=== PATIENT | female | born 1985 | race Caucasian/White ===

== ENCOUNTER 2016-12-27 15:31 | Outpatient (CLI) | payer MEDICAID ==
[~2016-12-27] VITALS: Ht 152.4 cm; Wt 64.5 kg
[2016-12-27 15:51] VITALS: BP 133/77; PULSE 92; RESP 18; Ht 152.4 cm; Wt 64.5 kg
[2016-12-27] MEDS ORDERED: PRENAT PO (15:51)
[2016-12-27] MEDS ORDERED: LACTATED RINGER'S 1,000 ML IV* SCH (16:30)
[2016-12-27] MEDS ORDERED: TERBUTALINE 1 MG/ML INJ SC PRN (16:30)
[2016-12-27 16:36] LABS: BASOPHILS % 0.3 % (0.0-2.0); EOSINOPHILS % 0.4 % (0.0-7.0); HEMATOCRIT 29.6 % (37.0-47.0); HEMOGLOBIN 10.2 g/dl (12.0-16.0); LYMPHOCYTES # 1.6 10^3/ul (0.8-2.9); LYMPHOCYTES % 16.7 % (15.0-51.0); MEAN CORPUSCULAR HEMOGLOBIN 32.3 pg (29.0-33.0); MEAN CORPUSCULAR HGB CONC 34.5 g/dl (32.0-37.0); MEAN CORPUSCULAR VOLUME 93.4 fl (82.0-101.0); MEAN PLATELET VOLUME 9.1 fl (7.4-10.4); MONOCYTE # 0.7 10^3/ul (0.3-0.9); MONOCYTES % 7.5 % (0.0-11.0); NEUTROPHIL # 7.3 10^3/ul (1.6-7.5); NEUTROPHILS % 75.1 % (39.0-77.0); PLATELET COUNT 242 10^3/UL (140-440); RED BLOOD COUNT 3.17 10^6/ul (4.20-5.40); RED CELL DISTRIBUTION WIDTH 13.2 % (11.5-14.5); UNCORRECTED WBC 9.7 10^3/ul (4.8-10.8); WHITE BLOOD COUNT 9.7 10^3/ul (4.8-10.8)
[2016-12-27 16:38] LABS: CONDITION 1
--- NOTE | 2016-12-27 16:38 | RADRPT ---
PROCEDURE: OB ultrasound for biophysical profile CLINICAL INDICATION: Biophysical profile. . TECHNIQUE: Multiple sonographic images of the pelvis were obtained. Transabdominal view of the gr avid uterus are available for review. The images were reviewed on a PACS workstation. COMPARISON: OB ultrasound 12/22/2016 FINDINGS: Single intrauterine gestation. Presentation: cephalic. Placenta: anterior breathing movement = 2/2 tone = 2/2 motion = 2/2 BRET = 2/2 BRET = 14.5 cm heart rate: 132 beats per minute IMPRESSION: Single intrauterine gestation. Biophysical profile 06/22 RPTAT: AADD .Ubaldo Francisco MD, MD Date Time Electronically viewed and signed by .Ubaldo Francisco MD, on 12/27/2016 16:38 .B/
[2016-12-27 16:39] LABS: ADD UMIC YES; URINE BILIRUBIN (Dip) NEGATIVE (NEGATIVE); URINE BLOOD (Dip) TRACE (NEGATIVE); URINE COLOR YELLOW (YELLOW); URINE GLUCOSE (Dip) NEGATIVE (NEGATIVE); URINE KETONES (Dip) NEGATIVE (NEGATIVE); URINE LEUKOCYTE ESTERASE (Dip) 3+ (NEGATIVE); URINE NITRITE (Dip) NEGATIVE (NEGATIVE); URINE TOTAL PROTEIN (Dip) NEGATIVE (NEGATIVE); URINE UROBILINOGEN (Dip) 0.2 E.U./dL (0.1-1.0)
[2016-12-27 16:43] LABS: ALBUMIN 3.3 g/dl (3.3-4.9)
[2016-12-27 16:46] LABS: ALBUMIN/GLOBULIN RATIO 0.91; BILIRUBIN,INDIRECT 0.1 mg/dl (0-1.1); BILIRUBIN,TOTAL 0.1 mg/dl (0.2-1.3); CREATININE 0.47 mg/dl (0.44-1.00); TOTAL PROTEIN 6.9 g/dl (6.1-8.1)
[2016-12-27 16:47] LABS: CALCIUM 9.2 mg/dl (8.4-10.2)
[2016-12-27 16:49] LABS: URINE RBCS 0-2 /HPF (0)
[2016-12-27 16:50] LABS: BACTERIA,URINE MODERATE; SQUAMOUS EPITHELIAL CELL,UR MANY
--- NOTE | 2016-12-27 17:04 | TRIAGE ---
OB Triage Datetime Report Generated by CPN: 12/27/2016 17:04 Datetime: 12/27/2016 16:30 Stage of : OB Triage Maternal Assessment Level of Consciousness: Fully Conscious Labor Evaluation Frequency: IRREGULAR UC'S W/ IRRITIBILITY Monitor Mode: External Duration (sec)2399: 30-120 Quality: Mild Resting Tone [place]: Relaxed Heart Rate FHR Baseline Rate: 125 Monitor Mode: External US Variability: Moderate 6-25 bpm Accelerations: 15X15 Decelerations: None Pain Assessment Pain Scale: 8 Pain Presence: Constant Pain Type: Burning Pain Location: Abdomen Pain Goal: 3 Pain Relief Measures: Comfort Measures Membrane Status: Intact Vaginal Bleeding: None Datetime: 12/27/2016 15:54 Vaginal Exam Dilatation (cms): 0.0 Station: -3 Exam By: khemani Cervix, Position: Posterior Datetime: 12/27/2016 15:49 Assessment Type: Triage Maternal Assessment Level of Consciousness: Fully Conscious DTR's/Clonus: DTRs 2+; No Clonus Headache: Denies Blurred Vision: No Respiratory Effort: Unlabored; Regular Rhythm; Equal Expansion Breath Sounds, Left: Clear and Equal Breath Sounds, Right: Clear and Equal Nausea/Vomiting: Denies RUQ Epigastric Pain: Denies Lower Extremities Edema: None Degree: None Upper Extremities Edema: None Degree: None Facial Edema: None Fall Risk Assessment History of Falling: (0) No Secondary Diagnosis: (0) No Ambulatory Aid: (0) Bedrest/Nurse Assist IV Therapy: (0) No Gait: (0) Normal/Bedrest/Immobile Mental Status: (0) Oriented to Own Ability Fall Score: 0 Fall Risk Score Definition: No Risk: No action required Datetime: 12/27/2016 15:43 Time of Arrival: 12/27/2016 15:30 EGA: 35.1 Arrived By: Wheelchair Arrived From: Home Chief Complaint: PT Movement: Present Contractions: Denies/Absent Rupture of Membranes: Denies Vaginal Bleeding: None Vaginal Discharge: Denies Recent Sexual Intercouse: Denies Abdominal Trauma: Not Applicable Patient Complaints: Epigastric Pain Time Provider Notified: 12/27/2016 16:05 Provider Notified: KELSEY Initial Plan: SVE, EFM, U/S BPP, IV HYDRATION, UA, CBC, CMP,TERB
--- NOTE | 2016-12-27 17:04 | QN ---
Documentation Comment OB Triage: 35+wks GA with LLQ pain at home currently no pain +Fm No VB NO LOF No CTXs NST reactive [place] N o CTXs Pelvic L/C/p BPP 06/22 labs WNL --->Discharged with precautions --->patient's questions answered THEODORA LANDA M.D. Dec 27, 2016 17:04
== END 2016-12-27 17:14 | disposition home or self-care (01) ==
LOC: OBT 15:31 → L-D 15:32 → OBT 17:14
PROVIDERS: ATTEND Obstetrics & Gynecology
DX: O26.893 Other specified pregnancy related conditions, third trimester (principal); R10.32 Left lower quadrant pain; Z3A.35 35 weeks gestation of pregnancy
CPT/HCPCS: 36415; 76818; 80053; 81001; 85025; 96360; 96372; J3105; J7120; Z7500; 81003; G0463

== ENCOUNTER 2017-01-25 13:47 | Inpatient (IN) | payer MEDICAID ==
[~2017-01-25] VITALS: Ht 152.4 cm; Wt 68.6 kg
[~2017-01-25 13:47] MED LIST: PRENAT PO
[2017-01-25] MEDS ORDERED: MISOPROSTOL 200 MCG TAB PR PRN (14:00)
[2017-01-25] MEDS ORDERED: CARBOPROST 250 MCG INJ IM PRN (14:00)
[2017-01-25] MEDS ORDERED: OXYTOCIN 30 UNITS/LR 500 ML IV PRN (14:00)
[2017-01-25] MEDS ORDERED: IBUPROFEN 600 MG TAB PO PRN (14:00)
[2017-01-25] MEDS ORDERED: LACTATED RINGER'S 1,000 ML IV PRN (14:00)
[2017-01-25] MEDS ORDERED: OXYTOCIN 30 UNITS/LR 500 ML IV SCH ×2 (14:00)
[2017-01-25] MEDS ORDERED: BUTORPHANOL 2 MG INJ IV PRN (14:00)
[2017-01-25] MEDS ORDERED: METHYLERGONOVINE 0.2 MG INJ IM PRN (14:00)
[2017-01-25] MEDS ORDERED: LIDOCAINE 1% (MPF) 30 ML INJ INJ PRN (14:00)
[2017-01-25] MEDS ORDERED: AMPICILLIN 2 GM/NS (PMX) 100 ML IV ONE (14:30)
[2017-01-25 14:35] VITALS: Ht 152.4 cm; Wt 68.6 kg
[2017-01-25 14:49] LABS: ADD SCAN DIFF NO
[2017-01-25 14:53] LABS: BASOPHILS % 0.1 % (0.0-2.0); EOSINOPHILS % 0.4 % (0.0-7.0); HEMATOCRIT 29.5 % (37.0-47.0); HEMOGLOBIN 9.7 g/dl (12.0-16.0); LYMPHOCYTES # 1.3 10^3/ul (0.8-2.9); LYMPHOCYTES % 18.8 % (15.0-51.0); MEAN CORPUSCULAR HEMOGLOBIN 30.8 pg (29.0-33.0); MEAN CORPUSCULAR HGB CONC 32.9 g/dl (32.0-37.0); MEAN CORPUSCULAR VOLUME 93.7 fl (82.0-101.0); MEAN PLATELET VOLUME 12.5 fl (7.4-10.4); MONOCYTE # 0.5 10^3/ul (0.3-0.9); MONOCYTES % 6.5 % (0.0-11.0); NEUTROPHIL # 5.1 10^3/ul (1.6-7.5); NEUTROPHILS % 73.6 % (39.0-77.0); PLATELET COUNT 187 10^3/UL (140-415); RED BLOOD COUNT 3.15 10^6/ul (4.20-5.40); RED CELL DISTRIBUTION WIDTH 14.1 % (11.5-14.5); WHITE BLOOD COUNT 6.9 10^3/ul (4.8-10.8)
[2017-01-25 15:01] LABS: INR 0.88; PROTIME 11.9 Sec (12.2-14.2); PT RATIO 0.9
[2017-01-25] MEDS: LACTATED RINGER'S 1,000 ML IV SCH ×3 (15:03→23:37)
[2017-01-25] MEDS ORDERED: DINOPROSTONE 10 MG VAG SUPP VAG ONE (17:00)
[2017-01-25] MEDS: AMPICILLIN 1 GM/NS (PMX) 50 ML IV SCH ×2 (19:15→22:01)
[2017-01-25 21:56] LABS: ADD UMIC YES; URINE BILIRUBIN (Dip) NEGATIVE (NEGATIVE); URINE BLOOD (Dip) NEGATIVE (NEGATIVE); URINE COLOR LT. YELLOW (YELLOW); URINE GLUCOSE (Dip) NEGATIVE (NEGATIVE); URINE KETONES (Dip) TRACE (NEGATIVE); URINE LEUKOCYTE ESTERASE (Dip) TRACE (NEGATIVE); URINE NITRITE (Dip) NEGATIVE (NEGATIVE); URINE TOTAL PROTEIN (Dip) TRACE (NEGATIVE); URINE UROBILINOGEN (Dip) 0.2 E.U./dL (0.1-1.0)
[2017-01-25 22:06] LABS: BACTERIA,URINE FEW; URINE RBCS 0-2 /HPF (0)
[2017-01-25 22:31] LABS: ALBUMIN 3.3 g/dl (3.3-4.9); POTASSIUM 3.9 mmol/L (3.5-5.1)
[2017-01-25 22:33] LABS: BILIRUBIN,INDIRECT 0.1 mg/dl (0-1.1); BILIRUBIN,TOTAL 0.1 mg/dl (0.2-1.3); CREATININE 0.81 mg/dl (0.44-1.00)
[2017-01-25 22:34] LABS: TOTAL PROTEIN 6.6 g/dl (6.1-8.1); URIC ACID 7.4 mg/dl (3.1-7.9)
[2017-01-26] VITALS (11 sets, daily range): BP systolic 126–157; BP diastolic 60–84; PULSE 75–112; RESP 17–20
[2017-01-26] MEDS ORDERED: FENTAnyl 2MCG/ML-ROPIV 0.2% 100 ML ONE (00:19)
[2017-01-26] MEDS ORDERED: NALOXONE (0.4 MG/ML) INJ IV PRN (00:30)
[2017-01-26] MEDS ORDERED: ONDANSETRON 4 MG INJ IV PRN ×3 (00:30→05:30)
[2017-01-26] MEDS ORDERED: FENTAnyl 2MCG/ML-ROPIV 0.2% 100 ML BAG EPI SCH (00:30)
[2017-01-26] MEDS ORDERED: DIPHENHYDRAMINE 50 MG INJ IV PRN ×2 (00:30→05:30)
[2017-01-26] MEDS: AMPICILLIN 1 GM/NS (PMX) 50 ML IV SCH (01:26)
[2017-01-26] MEDS ORDERED: DOCUSATE SODIUM 100 MG CAP PO ONE (03:30)
[2017-01-26] MEDS ORDERED: CARBOPROST 250 MCG INJ IM PRN ×2 (05:00→05:30)
[2017-01-26] MEDS ORDERED: METHYLERGONOVINE 0.2 MG INJ IM PRN ×2 (05:00→05:30)
[2017-01-26] MEDS ORDERED: OXYTOCIN 30 UNITS/LR 500 ML IV PRN ×2 (05:00→05:30)
[2017-01-26] MEDS ORDERED: MISOPROSTOL 200 MCG TAB PR PRN ×2 (05:00→05:30)
[2017-01-26] MEDS ORDERED: BENZOCAINE 20% 56 ML SPRAY TOP PRN ×2 (05:00→05:30)
[2017-01-26] MEDS ORDERED: WITCH HAZEL/GLYCERIN PAD PR PRN ×2 (05:00→05:30)
[2017-01-26] MEDS ORDERED: LACTATED RINGER'S 1,000 ML IV* SCH ×2 (05:00→05:23)
[2017-01-26] MEDS ORDERED: DIBUCAINE 1% 30 GM OINT PR PRN ×2 (05:00→05:30)
[2017-01-26] MEDS ORDERED: SENNA/DOCUSATE NA (8.6MG/50MG) TAB PO PRN ×3 (05:00→05:30)
[2017-01-26] MEDS ORDERED: LANOLIN 7 GM TUBE TOP PRN ×2 (05:00→05:30)
[2017-01-26] MEDS ORDERED: DIPHENHYDRAMINE 25 MG CAP PO PRN (05:00)
[2017-01-26] MEDS ORDERED: DEXTROSE 5%-LR 1,000 ML IV SCH (05:23)
[2017-01-26] MEDS ORDERED: ACETAMINOPHEN 325 MG TAB PO PRN (05:30)
[2017-01-26] MEDS ORDERED: MAGNESIUM CITRATE 300 ML BTL PO ONE (05:30)
[2017-01-26] MEDS ORDERED: OXYCODONE/ASPIRIN (4.88/325) TAB PO PRN (05:30)
[2017-01-26] MEDS ORDERED: ZOLPIDEM 5 MG TAB PO PRN (05:30)
[2017-01-26] MEDS ORDERED: IBUPROFEN 600 MG TAB PO SCH (06:00)
[2017-01-26] MEDS: IBUPROFEN 600 MG TAB PO SCH ×4 (06:00→23:45)
--- NOTE | 2017-01-26 06:15 | HP ---
Date/Time of Note Date/Time of Note DATE: 01/26/17 TIME: 06:04 OB - History Hx of Present Free Text/Dictation 31 Year-old with SIUP at 39 3/7 weeks admitted for IOL by Dr. Nolasco's order. She has been receiving her care with Dr. Nolasco. She states good movement. She denies nausea, vomiting, shortness of breath, chest pain, and abdominal pain between contractions, headache, visual changes, vaginal bleeding or LOF. Estimated Due Date: Jan 30, 2017 : 2 Para: 1 Spontaneous : 0 Therapeutic : 0 Care: Good Care Ultrasounds: Normal mid trimester US Obstetrical Complications: None Medical Complications: None Past Family/Social History * Past Medical, Surgical, Family and Obstetric Histories reviewed from chart. Blood Type: O+ Rubella: immune RPR/VDRL: Negative GBS Status: Positive HBsAG: Negative OB Admission Exam Vital Signs Vital Signs Vital Signs Date Time Temp Pulse Resp B/P Pulse Ox O2 Delivery O2 Flow Rate FiO2 01/26/17 05:04 100.7 99 18 150/68 Room Air Physical Exam HEENT: WNL Heart: Rhythm Normal Abdomen: WNL Extremities: Normal Reflexes: Normal Cervical Dilatation: None Effacement: 0% Station: -3 Membranes: Intact Heart Rate: 140's Accelerations: Accelerations Present Decelerations: No Decelerations Varibility: Moderate Contractions on Admission: None Last 72 hours Lab Results CBC & BMP 01/25/17 14:30 01/25/17 22:04 Liver Function Test 01/25/17 22:04 Alanine Aminotransferase (ALT/SGPT) 21 Albumin 3.3 Alkaline Phosphatase 197 H Aspartate Amino Transf (AST/SGOT) 23 Direct Bilirubin 0.00 Total Protein 6.6 OB Assessment/Plan Other plan: 31 Year-old with SIUP at 39 3/7 weeks admitted in labor and delivery for IOL - FHR: No sign of metabolic acidosis- Category I - Continious EFM, toco - CBC, blood type and screen - Analgesia options with R/B/A discussed in detail with patient - Epidural per patient request - Please see the orders - O+/Rubella: Immune - GBS positive: ampicillin ordered Admission, procedures, expectations, risks and possible complications have been discussed in detail with the patient. Risk of vaginal delivery including but not limited to bleeding, infection, cervical laceration, placental retention, injury to fetus, blood transfusion, blood transfusion related infection, risk of anesthesia, adhesion, cervical laceration, episiotomy/laceration, possible delivery with risk of bleeding, infection, injury to other organs ( bowel, bladder, ureter, vessels, nerves), injury to fetus, blood transfusion, blood transfusion related infection, risk of anesthesia, scar and hernia formation, needs for future , removal of uterus or any other indicated surgery discussed with the patient. She expressed understanding and repeats the risks. All of her questions were answered; all appropriate consents will be signed. PHYSICIAN'S VERIFICATION OF INFORMED CONSENT: The patient was counseled regarding the procedure, its indications, risks, potential complications and alternatives and any questions were answered. Consent was obtained. PLANNED PROCEDURE/TREATMENT: Vaginal delivery with possible vacuum/forceps delivery episiotomy, repair of laceration possible delivery PHYSICIAN'S VERIFICATION OF INFORMED CONSENT FOR BLOOD TRANSFUSION: There is a reasonable possibility that blood transfusion will be necessary as a result of the patient's procedure. I have discussed the following with the patient/patient's legal associate financial representative: An explanation of the benefits and risks of the transfusion of blood or blood products and the possible alternatives. Al questions have been answered to the patient's/patients legal representatives satisfaction. INFORMED CONSENT: The patient has been informed of: - The nature of the proposed care, treatment, services, medic- Potential benefits, risks or side effects, including potential problems related to recuperation. - The likelihood of achieving care treatment and service goals. - Reasonable alternatives to the proposed care, treatment and service. - The relevant risks, benefits and side effects related to alternatives, including the possible results of not receiving care, treatment and services. - When indicated, any limitations on the confidentiality of information learned from or about the patient. - If appropriate, the risks, benefits and alternatives of the drugs to be used for sedation/analgesia including moderate sedation. - If appropriate, patient has been provided information on the risks, benefits and alternatives to the transfusion of blood and/or blood products. JAMES ABDI Jan 26, 2017 06:14
--- NOTE | 2017-01-26 06:21 | LDN ---
Date/Time of Note Date/Time of Note DATE: 01/26/17 TIME: 06:15 Delivery Summary 31 Y/O with SIUP at 39 3/7 weeks delivered a male over 2 nd degree laceration Weight: 9 lbs 7 oz, 8 and 9, time of delivery: 02:38 Perineum intact?: No (2nd degree laceration. There was a ruptured thick vaginal septum probaby with first delivery. Septum at lower part removed. Pedicle sutured with 2/0 vicryl. The lac repaired by 2/0 vicryl) Anesthesia type: Epidural Estimated blood loss: 200 All needle counts correct: Yes Any foreign bodies felt in the: No Problems: Infant Delivery Information Sex Infant Sex: male Apgars 1 Minute: 8 5 Minute: 9 10 Minute: 10 Suctioning Nose & mouth suctioned at lisa: Yes Umbilical Cord Umbilical cord with: 3 Vessels Cord presentations: no nuchal cord Cord Blood was obtained: Yes JAMES ABDI Jan 26, 2017 06:20
[2017-01-26] MEDS: DOCUSATE SODIUM 100 MG CAP PO SCH ×2 (08:32→21:03)
[2017-01-26] MEDS: MULTIVIT/MIN/FOLATE/IRON/PREN TAB PO SCH (08:32)
[2017-01-26] MEDS: CEPHALEXIN 500 MG CAP PO SCH (19:40)
[2017-01-27] MEDS: CEPHALEXIN 500 MG CAP PO SCH ×4 (01:48→19:41)
[2017-01-27 03:45] VITALS: BP 110/59; PULSE 62; RESP 19
[2017-01-27] MEDS: IBUPROFEN 600 MG TAB PO SCH ×3 (05:33→17:31)
[2017-01-27 08:00] VITALS: BP 113/63; PULSE 60; RESP 20
[2017-01-27 08:00] LABS: ADD SCAN DIFF NO
[2017-01-27 08:18] LABS: BASOPHILS % 0.1 % (0.0-2.0); EOSINOPHILS % 0.4 % (0.0-7.0); HEMATOCRIT 24.6 % (37.0-47.0); HEMOGLOBIN 8.3 g/dl (12.0-16.0); LYMPHOCYTES # 2.1 10^3/ul (0.8-2.9); LYMPHOCYTES % 19.2 % (15.0-51.0); MEAN CORPUSCULAR HEMOGLOBIN 31.2 pg (29.0-33.0); MEAN CORPUSCULAR HGB CONC 33.7 g/dl (32.0-37.0); MEAN CORPUSCULAR VOLUME 92.5 fl (82.0-101.0); MEAN PLATELET VOLUME 12.5 fl (7.4-10.4); MONOCYTE # 0.7 10^3/ul (0.3-0.9); MONOCYTES % 6.2 % (0.0-11.0); NEUTROPHIL # 8.1 10^3/ul (1.6-7.5); NEUTROPHILS % 73.6 % (39.0-77.0); PLATELET COUNT 166 10^3/UL (140-415); RED BLOOD COUNT 2.66 10^6/ul (4.20-5.40); RED CELL DISTRIBUTION WIDTH 14.1 % (11.5-14.5)
[2017-01-27] MEDS: MULTIVIT/MIN/FOLATE/IRON/PREN TAB PO SCH (09:39)
[2017-01-27] MEDS: DOCUSATE SODIUM 100 MG CAP PO SCH ×2 (09:39→20:54)
[2017-01-27 15:30] VITALS: BP 125/83; PULSE 73; RESP 18
--- NOTE | 2017-01-27 18:20 | DS ---
Date/Time of Note Date/Time of Note home next day DATE: 01/27/17 TIME: 18:18 Obstetrical Discharge Record Final Diagnosis Final Diagnosis: Term delivered Vaginal Delivery Obstetrical Delivery: Spontaneous, Laceration, Repaired Condition on Discharge Physical Assessment Last Vitals: see nurses notes Voiding: Yes Bowel Movement: Yes Breast: Soft, non-tender, Filling Fundus: Firm Abdomen and Incision: soft BS + Episiotomy: NA perineum: healing Calf Tenderness: No Patient Condition: Good SASHA GORE MD Jan 27, 2017 18:19
[2017-01-27] MEDS ORDERED: IBUP-1542 PO (18:21)
--- NOTE | 2017-01-27 18:21 | PD.PPDC ---
[employer] Discharge Instruction Provider Information Physician Information 31 y/o female had vaginal delivery Diagnosis Final Diagnosis: S/P vaginal delivery Condition Patient Condition: Good Diet Diet: Resume Regular Diet Activity/Restrictions Activity: Normal Activity May Shower Restrictions: Nothing in the Vagina Return to Work or School: March 15, 2017 Follow-up Follow-up with Physician: 4, Week/Weeks (in clinic ) Return to clinic for OB Instructions: Breast Tenderness Depression SASHA GORE MD Jan 27, 2017 18:21
[2017-01-27 19:45] VITALS: BP 110/62; PULSE 84; RESP 17
[2017-01-28] MEDS: CEPHALEXIN 500 MG CAP PO SCH ×2 (02:31→09:19)
[2017-01-28 03:54] VITALS: BP 125/61; PULSE 83; RESP 18
[2017-01-28 04:45] VITALS: BP 103/48; PULSE 80; RESP 18
[2017-01-28] MEDS: IBUPROFEN 600 MG TAB PO SCH ×3 (05:59→12:19)
[2017-01-28 08:00] VITALS: BP 104/57; PULSE 76; RESP 18
[2017-01-28] MEDS ORDERED: DIPHTH/TET/ACEL PERTUSS (ADULT) 0.5 ML VIAL IM* ONE ×2 (09:00)
[2017-01-28] MEDS ORDERED: MEASLES,MUMPS,RUBELLA VACCINE INJ SC* ONE (09:00)
[2017-01-28] MEDS: DOCUSATE SODIUM 100 MG CAP PO SCH (09:00)
[2017-01-28] MEDS: MULTIVIT/MIN/FOLATE/IRON/PREN TAB PO SCH (09:19)
== END 2017-01-28 14:42 | disposition home or self-care (01) | DRG 775 ==
LOC: L-D 13:47 → PP1 01-26 05:27 → EDSTATUS 01-30 13:42
PROVIDERS: ADMIT Obstetrics & Gynecology; ATTEND Obstetrics & Gynecology
PROC: 10E0XZZ Delivery of Products of Conception, External Approach (ICD-10-PCS; principal; 2017-01-26)
PROC: 0KQM0ZZ Repair Perineum Muscle, Open Approach (ICD-10-PCS; 2017-01-26)
DX: O70.1 Second degree perineal laceration during delivery (principal); Z37.0 Single live birth; Z3A.39 39 weeks gestation of pregnancy
CPT/HCPCS: 62319; 80053; 81001; 81003; 84560; 85025; 85384; 85610; 85730; 86592; 86900; 86901; 87340; 90715; J0290; J2590; J3010; J7120; J7121